=== PATIENT | female | born 1965 ===

== ENCOUNTER 2019-01-14 11:31 | Emergency (ER) | payer SELFPAY ==
[2019-01-14 11:40] VITALS: BP 116/72; PULSE 73; RESP 15; TEMP 98.4; O2SAT 97
[2019-01-14 11:42] VITALS: BMI 25.5
[2019-01-14] MEDS ORDERED: Iohexol 240 (50 ml) PO ONE (12:32)
[2019-01-14] MEDS ORDERED: Iohexol 240 (50 ml) ONE (13:27)
[2019-01-14 13:49] LABS: BASO % 0.2 % (0.0-2.0); EOS # 0.1 K/uL (0.0-0.7); EOS % 2.9 % (0.0-4.0); HEMOGLOBIN 13.1 g/dL (12.0-16.0); LYMPH # 1.6 K/uL (1.0-4.3); LYMPH % 35.2 % (20.0-40.0); MEAN CELL VOLUME 86.7 fl (81.0-99.0); MEAN CORPUSCULAR HEMOGLOBIN 29.4 pg (27.0-31.0); MEAN CORPUSCULAR HGB CONC 33.9 g/dL (33.0-37.0); MEAN PLATELET VOLUME 7.9 fl (7.2-11.7); MONO # 0.4 K/uL (0.0-0.8); MONO % 9.6 % (0.0-10.0); NEUT # 2.3 K/uL (1.8-7.0); NEUT % 52.1 % (50.0-75.0); NRBC % 0.3 % (0.0-0.0); RBC 4.48 Mil/uL (3.80-5.20); RED CELL DISTRIBUTION WIDTH 13.1 % (11.5-14.5); WHITE BLOOD COUNT 4.4 K/uL (4.8-10.8)
[2019-01-14 13:52] LABS: SQUAMOUS EPITHIAL 1 /hpf (0-5); URINE BACTERIA RARE (<OCC); URINE BILIRUBIN NEGATIVE (NEGATIVE); URINE BLOOD NEGATIVE (NEGATIVE); URINE CLARITY SLIGHTY-CLOUDY (Clear); URINE COLOR YELLOW (YELLOW); URINE GLUCOSE (UA) NEG (NEGATIVE); URINE LEUKOCYTE ESTERASE NEG Leu/uL (Negative); URINE PROTEIN NEGATIVE (NEGATIVE); URINE UROBILINOGEN 0.2-1.0 mg/dL (0.2-1.0)
[2019-01-14 13:59] LABS: ALB/GLOB RATIO 1.3 (1.0-2.1); ALBUMIN 4.2 g/dL (3.5-5.0); ALT/SGPT 55 U/L (9-52); AST/SGOT 40 U/L (14-36); BLOOD UREA NITROGEN 13 mg/dl (7-17); GFR NON-AFRICAN AMERICAN > 60; LIPASE 124 U/L (23-300)
--- NOTE | 2019-01-14 14:01 | ED PDOC ---
HPI: Abdomen Time Seen by Provider: 01/14/19 12:15 Chief Complaint (Nursing): Abdominal Pain Chief Complaint (Provider): Abdominal Pain History Per: Patient History/Exam Limitations: no limitations Onset/Duration Of Symptoms: Days (2) Current Symptoms Are (Timing): Still Present Location Of Pain/Discomfort: RUQ, RLQ Quality Of Discomfort: Cramping Associated Symptoms: denies: Fever, Nausea, Vomiting, Diarrhea, Urinary Symptoms Additional Complaint(s): 53 year old female presents to the ED for an evaluation of right-sided stomach pain onset Sunday night. She took Tylenol with relief. Otherwise, she denies fever, nausea, vomiting or diarrhea. She reports of normal bowel movements and urinary output. PMD: Non [facility] Provider Abnormal Vaginal Bleeding: No Past Medical History Reviewed: Historical Data, Nursing Documentation, Vital Signs Vital Signs: Last Vital Signs Temp 98.4 F 01/14/19 11:40 Pulse 73 01/14/19 11:40 Resp 15 01/14/19 11:40 BP 116/72 01/14/19 11:40 Pulse Ox 97 01/14/19 11:40 - Medical History PMH: No Chronic Diseases - Surgical History Surgical History: (x2) - Family History Family History: States: Unknown Family Hx - Social History Current smoker - smoking cessation education provided: No Alcohol: None Drugs: Denies - Immunization History Hx Tetanus Toxoid Vaccination: No Hx Influenza Vaccination: No Hx Pneumococcal Vaccination: No - Home Medications Home Medications: Ambulatory Orders Medication Instructions Recorded Ibuprofen [Motrin] 600 mg PO Q6H PRN #20 tab 01/14/19 - Allergies Allergies/Adverse Reactions: Allergies Allergy/AdvReac Type Severity Reaction Status Date / Time Penicillins Allergy ANAPHYLAXIS Verified 01/14/19 11:57 Review of Systems ROS Statement: Except As Marked, All Systems Reviewed And Found Negative Constitutional: Negative for: Fever Gastrointestinal: Positive for: Abdominal Pain (right-sided). Negative for: Nausea, Vomiting, Diarrhea Genitourinary Female: Negative for: Dysuria, Frequency, Incontinence, Hematuria Musculoskeletal: Negative for: Back Pain Physical Exam - Reviewed Nursing Documentation Reviewed: Yes Vital Signs Reviewed: Yes - Physical Exam Appears: Positive for: Well, Non-toxic, No Acute Distress Head Exam: Positive for: ATRAUMATIC, NORMAL INSPECTION, NORMOCEPHALIC Skin: Positive for: Normal Color, Warm, Dry. Negative for: Rash Eye Exam: Positive for: EOMI, Normal appearance, PERRL ENT: Positive for: Normal ENT Inspection Neck: Positive for: Normal, Painless ROM, Supple. Negative for: Decreased ROM Cardiovascular/Chest: Positive for: Regular Rate, Rhythm. Negative for: Murmur Respiratory: Positive for: Normal Breath Sounds. Negative for: Respiratory Distress Gastrointestinal/Abdominal: Positive for: Tenderness (mild tenderness on the right side ). Negative for: Guarding, Rebound Back: Positive for: Normal Inspection Extremity: Positive for: Normal ROM. Negative for: Tenderness, Pedal Edema, Deformity Neurological/Psych: Positive for: Awake, Alert, Normal Tone, Oriented (x3) - Laboratory Results Result Diagrams: 01/14/19 13:30 01/14/19 13:30 Lab Results: Urine Color Yellow (YELLOW) 01/14/19 13:45 Urine Clarity Slighty-cloudy (Clear) 01/14/19 13:45 Urine pH 6.0 (5.0-8.0) 01/14/19 13:45 Ur Specific [place] 1.011 (1.003-1.030) 01/14/19 13:45 Urine Protein Negative mg/dL (NEGATIVE) 01/14/19 13:45 Urine Glucose (UA) Neg mg/dL (NEGATIVE) 01/14/19 13:45 Urine Ketones Negative mg/dL (NEGATIVE) 01/14/19 13:45 Urine Blood Negative (NEGATIVE) 01/14/19 13:45 Urine Nitrate Negative (NEGATIVE) 01/14/19 13:45 Urine Bilirubin Negative (NEGATIVE) 01/14/19 13:45 Urine Urobilinogen 0.2-1.0 mg/dL (0.2-1.0) 01/14/19 13:45 Ur Leukocyte Esterase Neg Sana/uL (Negative) 01/14/19 13:45 Urine RBC (Auto) 2 /hpf (0-3) 01/14/19 13:45 Urine Microscopic WBC 1 /hpf (0-5) 01/14/19 13:45 Ur Squamous Epith Cells 1 /hpf (0-5) 01/14/19 13:45 Urine Bacteria Rare (<OCC) 01/14/19 13:45 - ECG O2 Sat by Pulse Oximetry: 97 (RA) Pulse Ox Interpretation: Normal Medical Decision Making Medical Decision Making: Time: 12:32 Impression: abdominal pain rule out appendicitis vs cholecystitis Plan: Abd pelvis PO & IV contrast CT CMP Lipase CBC w/ differential Iohexol 50ml Urine C&S UA Reevaluation Patient has slightly elevated LFTs 16:17 PROCEDURE: CT Abdomen and Pelvis with contrast HISTORY: rlq abd pain COMPARISON: 10/25/2018. Abdominal ultrasound. TECHNIQUE: Intravenous contrast dose: 90 cc Omnipaque 300. Radiation dose: Total exam DLP = 267.76 mGy-cm. This CT exam was performed using one or more of the following dose reduction techniques: Automated exposure control, adjustment of the mA and/or kV according to patient size, and/or use of iterative reconstruction technique. FINDINGS: LOWER THORAX: Unremarkable. LIVER: Unremarkable. No gross lesion or ductal dilatation. GALLBLADDER AND BILE DUCTS: Cholelithiasis without CT evidence of acute cholecystitis. Solitary gallstone seen in the neck of the gallbladder finding noted previously. PANCREAS: Unremarkable. No gross lesion or ductal dilatation. SPLEEN: Unremarkable. ADRENALS: Unremarkable. No mass. KIDNEYS AND URETERS: Unremarkable. No hydronephrosis. No solid mass. VASCULATURE: Unremarkable. No aortic aneurysm. No atherosclerotic calcification or mural plaque present. BOWEL: Unremarkable. No obstruction. No gross mural thickening. APPENDIX: A normal appendix is visualized in it's entirety. PERITONEUM: Trace free fluid identified in the pelvis/cul de sac. No free air. LYMPH NODES: Unremarkable. No enlarged lymph nodes. BLADDER: Unremarkable. REPRODUCTIVE: Unremarkable. BONES: No acute fracture. OTHER FINDINGS: None. IMPRESSION: Cholelithiasis without CT evidence of acute cholecystitis. Trace free fluid identified in the pelvis/cul de sac. Unremarkable appendix, small bowel and colon. pt aware of elevated liver function tests and ct report. pt reevaluated, feels improved son at bedside apparently pt aware of prior gallstones pt stable for discharge home and oupt follow up in clinic and with surgeon Upon provider reevaluation patient is feeling better, is medically stable, and requires no further treatment in the ED at this time. Patient will be discharged home. Counseling was provided and all questions were answered regarding diagnosis and need for follow up with PMD. There is agreement to discharge plan. Return if symptoms persist or worsen. Scribe Attestation: Documented by Minal Hollins, acting as a scribe for [place] Ramachandran MD. Provider Scribe Attestation: All medical record entries made by the Scribe were at my direction and personal ly dictated by me. I have reviewed the chart and agree that the record accurately reflects my personal performance of the history, physical exam, medical decision making, and the department course for this patient. I have also personally directed, reviewed, and agree with the discharge instructions and disposition. Disposition - Clinical Impression Clinical Impression: Abdominal discomfort, Biliary colic, Elevated liver function tests - Patient ED Disposition Is Patient to be Admitted: No Counseled Patient/Family Regarding: Studies Performed, Diagnosis, Need For Followup - Disposition Referrals: Oswaldo Hickman MD [Staff Provider] - Disposition: Routine/Home Disposition Time: 16:31 Condition: IMPROVED Additional Instructions: follow up in the clinic in 1-2 days also follow up with surgeon as instructed within one week return to the ED with any worsening or concerning symptoms Prescriptions: Ibuprofen [Motrin] 600 mg PO Q6H PRN #20 tab PRN Reason: Pain, Moderate (4-7) Instructions: Gallstones Forms: [employer] ([employer])
[2019-01-14] MEDS ORDERED: Iohexol 300 100 ML IJ ONE (15:26)
--- NOTE | 2019-01-14 16:20 | CT ---
Date of service: 01/14/2019 PROCEDURE: CT Abdomen and Pelvis with contrast HISTORY: rlq abd pain COMPARISON: 10/25/2018. Abdominal ultrasound. TECHNIQUE: Intravenous contrast dose: 90 cc Omnipaque 300. Radiation dose: Total exam DLP = 267.76 mGy-cm. This CT exam was performed using one or more of the following dose reduction techniques: Automated exposure control, adjustment of the mA and/or kV according to patient size, and/or use of iterative reconstruction technique. FINDINGS: LOWER THORAX: Unremarkable. LIVER: Unremarkable. No gross lesion or ductal dilatation. GALLBLADDER AND BILE DUCTS: Cholelithiasis without CT evidence of acute cholecystitis. Solitary gallstone seen in the neck of the gallbladder finding noted previously. PANCREAS: Unremarkable. No gross lesion or ductal dilatation. SPLEEN: Unremarkable. ADRENALS: Unremarkable. No mass. KIDNEYS AND URETERS: Unremarkable. No hydronephrosis. No solid mass. VASCULATURE: Unremarkable. No aortic aneurysm. No atherosclerotic calcification or mural plaque present. BOWEL: Unremarkable. No obstruction. No gross mural thickening. APPENDIX: A normal appendix is visualized in it's entirety. PERITONEUM: Trace free fluid identified in the pelvis/cul de sac. No free air. LYMPH NODES: Unremarkable. No enlarged lymph nodes. BLADDER: Unremarkable. REPRODUCTIVE: Unremarkable. BONES: No acute fracture. OTHER FINDINGS: None. IMPRESSION: Cholelithiasis without CT evidence of acute cholecystitis. Trace free fluid identified in the pelvis/cul de sac. Unremarkable appendix, small bowel and colon.
== END 2019-01-14 16:47 | disposition home or self-care (01) ==
LOC: H.ER 11:31
DX: R10.9 Unspecified abdominal pain (principal); K80.70 Calculus of gallbladder and bile duct without cholecystitis without obstruction; Z88.0 Allergy status to penicillin
CPT/HCPCS: 74177; 80053; 81003; 83690; 85025; 87086; 99283; Q9966; Q9967